=== PATIENT | male | born 1965 | race Two or more races ===

== ENCOUNTER 2024-12-30 20:09 | Emergency (ER) | payer OTHER ==
[~2024-12-30 20:09] MED LIST: Iopamidol 300 61% 100 ML VIAL FS ONE
[2024-12-30] MEDS ORDERED: Pantoprazole 40 MG VIAL ONE (20:45)
[2024-12-30] MEDS ORDERED: Ondansetron PF 4 MG/2 ML Vial ONE ×2 (20:45→20:57)
[2024-12-30] MEDS ORDERED: Ketorolac Tromethamine 30 MG (1 mL) VIAL ONE (20:45)
[2024-12-30 21:04] LABS: #Basophils Less than 0.03 10x3/uL (0.0-0.2); #Eosinophils Less than 0.03 10x3/uL (0.0-0.5); #Monocytes 0.66 10x3/uL (0.0-1.1); #Neutrophils 9.74 10x3/uL (1.5-8.4); %Basophils 0.2 % (0.0-2.0); %Eosinophils 0.0 % (0.0-6.0); %Lymphocytes 5.2 % (18.0-47.0); %Monocytes 6.0 % (0.0-10.0); %Neutrophils 88.3 % (40.0-75.0); Hematocrit 42.4 % (38.8-50.0); Hemoglobin 14.5 g/dL (13.5-17.5); Mean Corpuscular Hemoglobin 29.8 pg (27.0-33.0); Mean Corpuscular Volume 87.1 fL (81.2-95.1); Platelet Count 205 10x3/uL (150-450); Red Blood Cell (RBC) Count 4.87 10x6/uL (4.32-5.72); White Blood Cell (WBC) Count 11.02 10x3/uL (3.5-10.5)
[2024-12-30 21:17] LABS: ALT (SGPT) 149 U/L (Less than 45); AST (SGOT) 253 U/L (11-34); Albumin 4.0 g/dL (3.1-4.5); Alkaline Phosphatase 51 U/L (40-110); Anion Gap 13 mmol/L (10-20); BUN (Urea Nitrogen) 23 mg/dL (8.4-25.7); Bilirubin, Total 2.1 mg/dL (0.3-1.2); Calc. Creatinine Clearance 0 mL/min (70-130); Calcium 9.5 mg/dL (7.8-10.44); Carbon Dioxide 27 mmol/L (22-29); Chloride 102 mmol/L (98-107); Globulin 3.4 g/dL (2.4-3.5); Glucose 185 mg/dL (70-105); Potassium 4.2 mmol/L (3.5-5.1); Sodium 138 mmol/L (136-145)
[2024-12-30 21:45] LABS: Lipase 5389 U/L (8-78)
== END 2024-12-31 01:16 | disposition short-term general hospital (02) ==
LOC: EEVIPCON 20:09 → CSHERS 20:09
DX: K85.90 Acute pancreatitis without necrosis or infection, unspecified (principal); E03.9 Hypothyroidism, unspecified; K21.9 Gastro-esophageal reflux disease without esophagitis; E66.9 Obesity, unspecified; I10 Essential (primary) hypertension; Z79.890 Hormone replacement therapy; Z79.899 Other long term (current) drug therapy
CPT/HCPCS: 36415; 74177; 76705; 80053; 83690; 85025; 96374; 96375; 96376; J1885; J2270; J2405; J2470; Q9967

== ENCOUNTER 2025-02-23 23:17 | Inpatient (IN) | payer OTHER ==
[~2025-02-23 23:17] MED LIST changes: -Iopamidol 300 61% 100 ML VIAL FS ONE; +Iopamidol 370 76% 100 ML VIAL ONE
[2025-02-23 23:26] LABS: #Basophils Less than 0.03 10x3/uL (0.0-0.2); #Eosinophils Less than 0.03 10x3/uL (0.0-0.5); #Monocytes 1.29 10x3/uL (0.0-1.1); #Neutrophils 12.17 10x3/uL (1.5-8.4); %Basophils 0.1 % (0.0-2.0); %Eosinophils 0.1 % (0.0-6.0); %Lymphocytes 13.1 % (18.0-47.0); %Monocytes 8.3 % (0.0-10.0); %Neutrophils 78.0 % (40.0-75.0); Hematocrit 41.9 % (38.8-50.0); Hemoglobin 13.7 g/dL (13.5-17.5); Mean Corpuscular Hemoglobin 29.2 pg (27.0-33.0); Mean Corpuscular Volume 89.3 fL (81.2-95.1); Platelet Count 220 10x3/uL (150-450); Red Blood Cell (RBC) Count 4.69 10x6/uL (4.32-5.72); White Blood Cell (WBC) Count 15.61 10x3/uL (3.5-10.5)
[2025-02-23 23:38] LABS: INR-International Normal Ratio 1.0; PTT 23.6 sec (22.0-33.0); Prothrombin Time 10.7 sec (9.5-12.1)
[2025-02-23 23:42] LABS: ALT (SGPT) 225 U/L (Less than 45); AST (SGOT) 328 U/L (11-34); Albumin 3.5 g/dL (3.1-4.5); Alkaline Phosphatase 61 U/L (40-110); Anion Gap 18 mmol/L (10-20); BUN (Urea Nitrogen) 28 mg/dL (8.4-25.7); Bilirubin, Total 1.5 mg/dL (0.3-1.2); Calc. Creatinine Clearance 0 mL/min (70-130); Calcium 8.8 mg/dL (7.8-10.44); Carbon Dioxide 26 mmol/L (22-29); Chloride 101 mmol/L (98-107); Globulin 3.3 g/dL (2.4-3.5); Glucose 202 mg/dL (70-105); Magnesium 1.8 mg/dL (1.6-2.6); Potassium 3.7 mmol/L (3.5-5.1); Sodium 141 mmol/L (136-145)
[2025-02-24 00:11] LABS: Lipase 6945 U/L (8-78)
[2025-02-24 00:31] LABS: Actual Bicarbonate (HCO3v) 25.0 mEq/L (22-28); Analyzer IN Cardio CS ER; Base Excess -2.4 mEq/L (-2 - +2); Calcium, Ionized (venous) 1.10 mmol/L (1.16-1.32); Chloride (VBG) 101 mmol/L (98-106); Hematocrit-VBG 41 % (42.0-52.0); Hemoglobin (Hb) 13.8 g/dL (13.1-17.2); Potassium (VBG) 3.96 mmol/L (3.70-5.30); Puncture Site Other Site; RapidComm Collect By Lab; Sodium 138 mmol/L (133-146)
[2025-02-24] MEDS ORDERED: Calcium Carbonate 500 MG ChewTAB PO PRN (00:49)
[2025-02-24] MEDS ORDERED: Senokot S 8.6-50 MG TAB PO PRN (00:49)
[2025-02-24] MEDS ORDERED: Ondansetron PF 4 MG/2 ML Vial IVP PRN (00:49)
[2025-02-24] MEDS ORDERED: Glucagon 1 MG/ML KIT IM PRN (00:49)
[2025-02-24] MEDS ORDERED: Dextrose 50% Abboject 50 ML SYRINGE SLOW IVP PRN (00:49)
[2025-02-24] MEDS ORDERED: Ketorolac Tromethamine 30 MG (1 mL) VIAL IVP PRN (00:55)
[2025-02-24] MEDS ORDERED: Pantoprazole 40 MG VIAL ONE ×2 (03:57→08:13)
[2025-02-24] MEDS: Pantoprazole 40 MG VIAL IVP SCH ×2 (04:00→08:24)
[2025-02-24 04:04] LABS: CAUTI Indications for Culture Pelvic or flank pain; Glucose, Urine (Dipstick) Normal (Negative); Leukocyte Negative (Negative); Protein, Urine (Dipstick) 30 mg/dl (Neg-Trace); RBC/HPF None Seen HPF (0-3); Specific Gravity, Urine 1.010 (1.005-1.030); WBC/HPF None Seen HPF (0-3)
[2025-02-24 04:05] LABS: Urine Culture Reflex No No
[2025-02-24 07:00] LABS: Hematocrit 39.3 % (38.8-50.0); Hemoglobin 13.1 g/dL (13.5-17.5); Mean Corpuscular Hemoglobin 29.6 pg (27.0-33.0); Mean Corpuscular Volume 88.7 fL (81.2-95.1); Platelet Count 137 10x3/uL (150-450); Red Blood Cell (RBC) Count 4.43 10x6/uL (4.32-5.72); White Blood Cell (WBC) Count 9.09 10x3/uL (3.5-10.5)
[2025-02-24 07:01] LABS: #Basophils Less than 0.03 10x3/uL (0.0-0.2); #Eosinophils 0.03 10x3/uL (0.0-0.5); #Monocytes 0.72 10x3/uL (0.0-1.1); #Neutrophils 6.65 10x3/uL (1.5-8.4); %Basophils 0.2 % (0.0-2.0); %Eosinophils 0.3 % (0.0-6.0); %Lymphocytes 17.9 % (18.0-47.0); %Monocytes 7.9 % (0.0-10.0); %Neutrophils 73.3 % (40.0-75.0)
[2025-02-24 07:22] VITALS: BMI 49.1
[2025-02-24 07:35] LABS: ALT (SGPT) 190 U/L (Less than 45); AST (SGOT) 183 U/L (11-34); Albumin 3.1 g/dL (3.1-4.5); Alkaline Phosphatase 53 U/L (40-110); Anion Gap 14 mmol/L (10-20); BUN (Urea Nitrogen) 25 mg/dL (8.4-25.7); Bilirubin, Total 0.4 mg/dL (0.3-1.2); Calc. Creatinine Clearance 104 mL/min (70-130); Calcium 8.0 mg/dL (7.8-10.44); Carbon Dioxide 22 mmol/L (22-29); Chloride 109 mmol/L (98-107); Globulin 3.4 g/dL (2.4-3.5); Glucose 113 mg/dL (70-105); Magnesium 1.9 mg/dL (1.6-2.6); Potassium 4.9 mmol/L (3.5-5.1); Sodium 140 mmol/L (136-145)
[2025-02-24 07:54] LABS: Lipase 2535 U/L (8-78)
[2025-02-24] MEDS ORDERED: Enoxaparin 40 MG (0.4 mL) SYRINGE ONE (08:13)
[2025-02-24] MEDS: Enoxaparin 40 MG (0.4 mL) SYRINGE SC SCH ×2 (08:22→21:17)
[2025-02-24] MEDS: Acetaminophen 325 MG TAB PO PRN (15:02)
[2025-02-25 04:33] LABS: #Basophils Less than 0.03 10x3/uL (0.0-0.2); #Eosinophils 0.10 10x3/uL (0.0-0.5); #Monocytes 0.54 10x3/uL (0.0-1.1); #Neutrophils 5.53 10x3/uL (1.5-8.4); %Basophils 0.3 % (0.0-2.0); %Eosinophils 1.3 % (0.0-6.0); %Lymphocytes 18.1 % (18.0-47.0); %Monocytes 7.1 % (0.0-10.0); %Neutrophils 72.8 % (40.0-75.0); Hematocrit 38.8 % (38.8-50.0); Hemoglobin 12.8 g/dL (13.5-17.5); Mean Corpuscular Hemoglobin 29.9 pg (27.0-33.0); Mean Corpuscular Volume 90.7 fL (81.2-95.1); Platelet Count 152 10x3/uL (150-450); Red Blood Cell (RBC) Count 4.28 10x6/uL (4.32-5.72); White Blood Cell (WBC) Count 7.59 10x3/uL (3.5-10.5)
[2025-02-25 04:48] LABS: Albumin 3.3 g/dL (3.1-4.5); Anion Gap 12 mmol/L (10-20); BUN (Urea Nitrogen) 18 mg/dL (8.4-25.7); BUN/Creatinine Ratio 17.14; Calc. Creatinine Clearance 162 mL/min (70-130); Calcium 8.8 mg/dL (7.8-10.44); Carbon Dioxide 27 mmol/L (22-29); Chloride 107 mmol/L (98-107); Glucose 93 mg/dL (70-105); Potassium 4.0 mmol/L (3.5-5.1); Sodium 142 mmol/L (136-145)
[2025-02-26 04:17] LABS: #Basophils 0.03 10x3/uL (0.0-0.2); #Eosinophils 0.16 10x3/uL (0.0-0.5); #Monocytes 0.56 10x3/uL (0.0-1.1); #Neutrophils 4.48 10x3/uL (1.5-8.4); %Basophils 0.4 % (0.0-2.0); %Eosinophils 2.3 % (0.0-6.0); %Lymphocytes 24.2 % (18.0-47.0); %Monocytes 8.1 % (0.0-10.0); %Neutrophils 64.6 % (40.0-75.0); Hematocrit 36.7 % (38.8-50.0); Hemoglobin 12.1 g/dL (13.5-17.5); Mean Corpuscular Hemoglobin 29.4 pg (27.0-33.0); Mean Corpuscular Volume 89.1 fL (81.2-95.1); Platelet Count 153 10x3/uL (150-450); Red Blood Cell (RBC) Count 4.12 10x6/uL (4.32-5.72); White Blood Cell (WBC) Count 6.94 10x3/uL (3.5-10.5)
[2025-02-26 04:38] LABS: Albumin 3.1 g/dL (3.1-4.5); Anion Gap 12 mmol/L (10-20); BUN (Urea Nitrogen) 13 mg/dL (8.4-25.7); BUN/Creatinine Ratio 13.68; Calc. Creatinine Clearance 179 mL/min (70-130); Calcium 8.9 mg/dL (7.8-10.44); Carbon Dioxide 28 mmol/L (22-29); Chloride 106 mmol/L (98-107); Glucose 91 mg/dL (70-105); Potassium 4.4 mmol/L (3.5-5.1); Sodium 142 mmol/L (136-145)
[2025-02-26] MEDS ORDERED: Bupivacaine HCl 0.5%/Epinephrine 1:200,000/PF 30 ml Vial ONE (07:48)
[2025-02-26] MEDS ORDERED: PROPOFOL 20 ML ONE (08:07)
[2025-02-26] MEDS ORDERED: SUGAMMADEX SODIUM 200 MG/2 ML VIAL ONE (09:13)
[2025-02-26] MEDS ORDERED: HYDROcodone/Acetaminophen 10/325 mg Tablet PO PRN (09:38)
[2025-02-26] MEDS ORDERED: HYDROmorphone 0.5 MG/0.5 ML SYRINGE ONE (10:02)
[2025-02-26 13:02] VITALS: TEMP 98.1
[2025-02-26] MEDS: HYDROcodone/Acetaminophen 10/325 mg Tablet PO PRN (16:13)
[2025-02-26 18:11] VITALS: BP 137/82
[2025-02-26] MEDS ORDERED: DULoxetine 30 MG CAP PO SCH (21:00)
== END 2025-02-26 18:12 | DRG 417 ==
LOC: CSHERS 23:17 → EEVIPCON 23:17 → CSHERHOLD 02-24 00:52 → CSHTELE 02-24 13:49
PROVIDERS: ADMIT Student in an Organized Health Care Education/Training Program; ATTEND Family Medicine
PROC: 0FT44ZZ Resection of Gallbladder, Percutaneous Endoscopic Approach (ICD-10-PCS; principal; 2025-02-26)
PROC: 8E0W4CZ Robotic Assisted Procedure of Trunk Region, Percutaneous Endoscopic Approach (ICD-10-PCS; 2025-02-26)
PROC: 3E03329 Introduction of Other Anti-infective into Peripheral Vein, Percutaneous Approach (ICD-10-PCS; 2025-02-26)
DX: K85.10 Biliary acute pancreatitis without necrosis or infection (principal); R65.11 Systemic inflammatory response syndrome (SIRS) of non-infectious origin with acute organ dysfunction; E87.20 Acidosis, unspecified; N17.9 Acute kidney failure, unspecified; Z68.42 Body mass index [BMI] 45.0-49.9, adult; R74.01 Elevation of levels of liver transaminase levels; I10 Essential (primary) hypertension; E78.5 Hyperlipidemia, unspecified; E66.01 Morbid (severe) obesity due to excess calories; E03.9 Hypothyroidism, unspecified; E86.0 Dehydration; E11.9 Type 2 diabetes mellitus without complications; K80.20 Calculus of gallbladder without cholecystitis without obstruction; K76.0 Fatty (change of) liver, not elsewhere classified; I95.9 Hypotension, unspecified
CPT/HCPCS: 36415; 36416; 71045; 71275; 74174; 74181; 76376; 76705; 80053; 80069; 81001; 82805; 83605; 83690; 83735; 84100; 84145; 85025; 85610; 85730; 86140; 86850; 86900; 86901; 87040; 87086; 88304; 93005; 96361; 96365; 96375; C1889; J1171; J1650; J1815; J2250; J2270; J2470; J2543; J2704; J3010; J7030; Q9967; S2900; S8037